=== PATIENT | male | born 1975 | race Caucasian/White ===

== ENCOUNTER → 2025-02-12 | Outpatient (CLI) | payer OTHER ==
[~2025-02-12] MED LIST: GILTUSS LIQUID237 M1 PO; PROVENTIL3 ML/2.5 M IH; VITAMIN C100 MG
== END | disposition home or self-care (01) ==
LOC: MRI 06:54
DX: M75.32 Calcific tendinitis of left shoulder (principal); M75.100 Unspecified rotator cuff tear or rupture of unspecified shoulder, not specified as traumatic; S46.819A Strain of other muscles, fascia and tendons at shoulder and upper arm level, unspecified arm, initial encounter
CPT/HCPCS: 73221